=== PATIENT | female | born 1970 | race Caucasian/White ===

== ENCOUNTER 2021-02-15 00:39 | Emergency (ER) | payer MEDICAID ==
[~2021-02-15] VITALS: Ht 162.6 cm; Wt 73.0 kg
[2021-02-15 01:25] LABS: BASOPHILS % 0.7 % (0.0-2.0); EOSINOPHILS % 5.7 % (0.0-5.0); HEMATOCRIT. 38.5 % (36.0-48.0); HEMOGLOBIN. 13.2 g/dL (12.0-16.0); LYMPHOCYTES % 25.1 % (20.0-50.0); MEAN CORPUSCULAR HEMOGLOBIN 29.8 pg (28.0-32.0); MEAN CORPUSCULAR VOLUME 86.6 fL (81.0-99.0); MEAN PLATELET VOLUME 8.5 fl (7.4-10.4); MONOCYTES % 7.4 % (2.0-8.0); NEUTROPHILS % 61.1 % (40.0-76.0); PLATELET 250 x1000/uL (130-400); RED BLOOD CELL COUNT 4.44 mill/uL (4.2-5.4); RED CELL DISTRIBUTION WIDTH 13.3 % (11.6-14.6)
[2021-02-15 01:31] LABS: CHLORIDE 110 mEq/L (98-107)
[2021-02-15 01:34] LABS: HCG SCREEN NEGATIVE
[2021-02-15 01:36] LABS: PARTIAL THROMBOPLASTIN TIME 26.5 sec (23.4-31.0); PROTHROMBIN TIME 10.7 sec (9.6-11.0)
[2021-02-15] MEDS ORDERED: IOHEXOL-300 100 ML BOTTLE ONE (02:56)
[2021-02-15 03:20] VITALS: BP 129/79
== END 2021-02-15 03:34 | disposition home or self-care (01) ==
LOC: ER 00:39
DX: M79.601 Pain in right arm (principal); R10.9 Unspecified abdominal pain; R51.9 Headache, unspecified
CPT/HCPCS: 36415; 70450; 71260; 72125; 74177; 80053; 83690; 84703; 85025; 85610; 85730; 86850; 86900; 86901; 93005; 99285; Q9967